=== PATIENT | female | born 1960 ===

== ENCOUNTER 2018-10-10 06:26 | Day surgery (SDC) | payer OTHER ==
[2018-10-10] MEDS ORDERED: Propofol 10 mg/ml Inj (20 ML) ONE (07:18)
[2018-10-10] MEDS ORDERED: Rocuronium 10 mg/ml (5 ml) ONE (07:18)
[2018-10-10] MEDS ORDERED: Lidocaine 4% (Laryng-O-Jet) Kit MM ONE (07:18)
[2018-10-10] MEDS ORDERED: Succinylcholine Chloride 20 mg/ml Syr (5 ml) IV ONE (07:18)
[2018-10-10] MEDS ORDERED: Etomidate 20 mg/10ml Inj IV ONE (07:18)
[2018-10-10] MEDS ORDERED: Dexamethasone 4 mg/1 ml ONE (07:19)
[2018-10-10] MEDS ORDERED: Bupivacaine 0.5% Inj(30mL) ONE (07:19)
[2018-10-10] MEDS ORDERED: MethylPREDNISolone Depo 40 mg/ml Inj ONE (07:19)
[2018-10-10] MEDS ORDERED: Bacitracin Ointment 30 GM TUBE ONE (07:19)
[2018-10-10] MEDS ORDERED: Lidocaine 1% Inj (20ml) ONE (07:19)
[2018-10-10] MEDS ORDERED: EPINEPHrine 1 mg/ml (1:1000) Inj ONE (07:19)
[2018-10-10] MEDS ORDERED: Phenylephrine 10 mg/ml Inj ONE (07:21)
--- NOTE | 2018-10-10 07:22 | CP.PCM.PN ---
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 Patient counseled on the risks of addiction, physical or psychological dependence, and overdose associated with opioid drugs and the danger of taking opioid drugs with alcohol and other central nervous system depressants, and cautioned patient on storage and disposal.
[2018-10-10 07:26] VITALS: BMI 31.8
[2018-10-10] MEDS ORDERED: Albuterol HFA 90 mcg/actuation (8 g) ONE (07:38)
[2018-10-10] MEDS ORDERED: Lactated Ringer's 1,000 ML IV ONE ×2 (08:15→09:40)
[2018-10-10] MEDS ORDERED: Midazolam 2 MG/2 ML VIAL ONE (08:16)
[2018-10-10] MEDS ORDERED: Neostigmine 1:1000 (1 mg/ml) Inj ONE (09:16)
[2018-10-10] MEDS ORDERED: Morphine 1 mg/ml preservative-free Inj(Duramorph) ONE (09:19)
[2018-10-10] MEDS: HYDROmorphone 0.5 mg/0.5 ml ISec IVP PRN ×2 (09:50→10:40)
[2018-10-10] MEDS ORDERED: HYDROmorphone 0.5 mg/0.5 ml ISec ONE (09:52)
[2018-10-10] MEDS ORDERED: Lactated Ringer's 1,000 ML IV SCH (10:00)
[2018-10-10] MEDS ORDERED: Oxycodone/Acetaminophen 5/325 mg Tab PO PRN (12:52)
[2018-10-10 14:02] VITALS: RESP 20
--- NOTE | 2018-10-10 14:31 | PCM.SURG1 ---
Surgeon's Initial Post Op Note - Surgeon's Notes Surgeon: Alex Operations Section Manager: DASHAWN Delvalle Type of Anesthesia: General Endo Anesthesia Administered By: DR Ollie fisher Pre-Operative Diagnosis: internal derangement L knee Operative Findings: medial compartment arthritis with chondral damage medial femoral condyle to subchondral bone. tear medial/lateral meniscus. tricompartmental synovitis. \ Post-Operative Diagnosis: as above Operation Performed: Microfracture medial femoral con. dyle (arthroscopic). arthroscopic partrial tricomparmental synovectomy. arthroscopic partial medial/lateral meniscectomy. intraarticular injection Specimen/Specimens Removed: cartilage/synvoium/bone Estimated Blood Loss: EBL {In ML}: 5 Blood Products Given: N/A Drains Used: No Drains Post-Op Condition: Fair Date of Surgery/Procedure: 10/10/18 Time of Surgery/Procedure: 08:55 (time in room 8:58/[email or web address] indcution time 8:58)
--- NOTE | 2018-10-10 16:44 | OP ---
PROCEDURE DATE: 10/10/2018 TIME OF PROCEDURE: Incision time 08:58, time in the room 08:15. Anesthesia induction time 08:15. PREOPERATIVE DIAGNOSIS: Internal derangement of the left knee. POSTOPERATIVE DIAGNOSES: 1. Medial compartment arthritis with chondral damage, most particularly on the medial femoral condyle to the subchondral bone eburnation. 2. Tear of medial meniscus, tear of lateral meniscus. 3. Tricompartmental synovitis. OPERATION PERFORMED: 1. Arthroscopic microfracture, medial femoral condyle. 2. Arthroscopic removal, loose body. 3. Arthroscopic partial tricompartmental synovectomy. 4. Arthroscopic partial medial meniscectomy and lateral meniscectomy. 5. Intra-articular injection. SURGEON: Ramin Johnson MD CHARGE ACCOUNT AUTHORIZER: Mayela Finn, certified registered nursing assistant head cashier. TYPE OF ANESTHESIA: General endotracheal anesthesia. ESTIMATED BLOOD LOSS: 5 mL. BLOOD PRODUCTS: No blood products given. DRAINS: No drains. POSTOPERATIVE CONDITION: Stable. SPECIMENS REMOVED: Cartilage, synovium, bone. OPERATIVE INDICATION: Avis Parish is a 58-year-old woman who has diagnosed meniscal tears. The patient has been refractory to conservative approach consisting of intra-articular injection, activity modification, and therapy. Pros, cons, risks and benefits of surgical approach were discussed. Possibility of mechanical failure, infection, thromboembolic disease discussed, the concept of later arthroplasty surgery was discussed. The patient can no longer withstand the discomfort and wished the surgery to be accomplished. DESCRIPTION OF PROCEDURE: After having obtained informed consent in the above fashion, after having identified the side, site and procedure, and a critical pause/time-out, after the satisfactory induction of the anesthetic, the patient identified as Avis Parish in the supine position with all bony prominences well padded. The left lower extremity was prepped and free draped in the usual fashion for lower extremity surgery. The tourniquet had been applied, but was not yet inflated. After exsanguinating the limb using a 6-inch Esmarch bandage, the tourniquet which had been applied was inflated to 350 mmHg. The joint was insufflated with 10 mL of 1% lidocaine without epinephrine. Using an #11 blade, followed by spreading, introduction of blunt trocar, the arthroscope was introduced. There was found to be a marked tricompartmental synovitis. Triangulation was accomplished using #18-gauge spinal needle, followed by #11 blade, followed by spreading, followed by introduction of blunt trocar. With the arthroscope introduced anterolaterally, a careful partial tricompartmental synovectomy was accomplished, both to improve visualization and to ablate irritative tissue. Bleeding points were controlled with the arthroscopic wand. With the arthroscope anterolaterally, a careful partial tricompartmental synovectomy having been completed, there was found to be evidence of a loose body. With the arthroscope anterolaterally, the loose body was identified and the loose body was removed using the grasping forceps. Please refer to the video photographs. Partial tricompartmental synovectomy was then completed. With the surgeon exerting a gentle valgus stress, there was found to be a tear of the inner free edge of the medial meniscus. Using a combination of straight-biting basket forceps and the side-biting basket forceps, a partial medial meniscectomy was accomplished. The arthroscope was transferred back to the anterolateral portal and with the surgeon exerting a gentle valgus stress, there was found to be a tear of the deep posterior horn as well. There was no posterior root detachment. Again, there was no posterior root detachment. Partial medial meniscectomy having been completed, the inner free edge was smoothed using the arthroscopic wand. With the arthroscope anterolaterally, with the knee in [id number] position, the lateral meniscus was exposed to advantage. There was found to be evidence of a tear of the mid anterior aspect of the lateral meniscus. Using a combination of the right upbiting basket forceps and the arthroscopic shaver, a partial lateral meniscectomy was accomplished. The inner free edge was smoothed using the arthroscopic wand. Careful partial tricompartmental synovectomy was completed. This having been accomplished, the loose body having been removed with the arthroscope anterolaterally, the medial compartment was exposed and the arthroscope was transferred anteromedially. The loose articular cartilage was debrided. Subchondral bone was evident. Using the arthroscopic pick to the anterolateral portal, an arthroscopic microfracture was accomplished in a honeycomb type fashion. The borders of the lesion were first defined with the arthroscopic pick and then the anterior down to bleeding bone. Careful partial tricompartmental synovectomy was completed. Bleeding points were controlled with the ArthroCare wand. The wound was thoroughly irrigated. Closures in layers with interrupted Vicryl and nylon. Intra-articular injection was offered. Daniel Zamora compression dressing was applied. Ramin Johnson MD
[2018-10-10 16:52] VITALS: BP 133/77; PULSE 79; TEMP 98; O2SAT 96
== END 2018-10-10 16:15 | disposition home or self-care (01) ==
LOC: H.OPSURG 06:26 → MERGE 06:26 → H.OPSURG 16:15
PROVIDERS: ATTEND Orthopaedic Surgery
DX: M23.8X2 Other internal derangements of left knee (principal); J45.909 Unspecified asthma, uncomplicated; J44.9 Chronic obstructive pulmonary disease, unspecified; E78.5 Hyperlipidemia, unspecified; I10 Essential (primary) hypertension; G47.33 Obstructive sleep apnea (adult) (pediatric); M65.862 Other synovitis and tenosynovitis, left lower leg
CPT/HCPCS: 29876; 29879; 29880; 88304; 97162; G8978; G8979; G8980; J0171; J0690; J1030; J1100; J1170; J2001; J2250; J2270; J2370; J2405; J2704; J2710; J2765; J3010; J7030; J7120